=== PATIENT | male | born 1975 ===

== ENCOUNTER 2023-01-21 00:48 | Emergency (ER) | payer OTHER ==
[2023-01-21] MEDS ORDERED: LIDOCAINE 1% MPF 30 ML VIAL ONE (01:12)
[2023-01-21] MEDS ORDERED: DOXYCYCLINE 100 MG CAP PO ONE (01:12)
[2023-01-21] MEDS ORDERED: TDAP (DIPHTH,PERTUSS(ACELL),TET VAC) 0.5 ML VIAL IMVAC ONE (01:12)
[2023-01-21] MEDS ORDERED: HYDROCODONE/APAP 7.5/325 MG TAB ONE (01:41)
--- NOTE | 2023-01-21 02:25 | EDPHYS ---
Physician Documentation [facility] Name: Aidan Lara Age: 47 yrs Sex: Male : 1975 Arrival Date: 01/21/2023 Time: 00:48 Bed 11 Private MD: Scott Alamo HPI: 01/21 01:01 This 47 yrs old Male presents to ER via Wheelchair with complaints of Laceration To snw Foot. 01:01 The patient has a laceration related to: fishing. The laceration(s) is(are) located on snw the instep of left foot. Onset: The symptoms/episode began/occurred suddenly, just prior to arrival. The patient has not experienced similar symptoms in the past. It is unknown whether or not the patient has recently seen a physician. Historical: - Allergies: 01:00 No Known Allergies; kl - Home Meds: 01:00 None [Active]; kl - PMHx: 01:00 None; kl - PSHx: 01:00 inguinal hernia repair; kl - Immunization history:: Adult Immunizations not up to date. - Social history:: Smoking status: Patient denies any tobacco usage or history of. ROS: 01:01 Constitutional: Negative for fever, chills, and weight loss, Eyes: Negative for injury, snw pain, redness, and discharge, ENT: Negative for injury, pain, and discharge, Neck: Negative for injury, pain, and swelling, Cardiovascular: Negative for chest pain, palpitations, and edema, Respiratory: Negative for shortness of breath, cough, wheezing, and pleuritic chest pain, Abdomen/GI: Negative for abdominal pain, nausea, vomiting, diarrhea, and constipation, Back: Negative for injury and pain, : Negative for injury, bleeding, discharge, and swelling, MS/Extremity: Negative for injury and deformity, Neuro: Negative for headache, weakness, numbness, tingling, and seizure, Psych: Negative for depression, anxiety, suicide ideation, homicidal ideation, and hallucinations. 01:01 Skin: Positive for laceration(s), of the instep of left foot. Exam: 01:00 Constitutional: This is a well developed, well nourished patient who is awake, alert, snw and in no acute distress. Head/Face: Normocephalic, atraumatic. Eyes: Pupils equal round and reactive to light, extra-ocular motions intact. Lids and lashes normal. Conjunctiva and sclera are non-icteric and not injected. Cornea within normal limits. Periorbital areas with no swelling, redness, or edema. ENT: Nares patent. No nasal discharge, no septal abnormalities noted. Tympanic membranes are normal and external auditory canals are clear. Oropharynx with no redness, swelling, or masses, exudates, or evidence of obstruction, uvula midline. Mucous membranes moist. Neck: Trachea midline, no thyromegaly or masses palpated, and no cervical lymphadenopathy. Supple, full range of motion without nuchal rigidity, or vertebral point tenderness. No Meningismus. Chest/axilla: Normal chest wall appearance and motion. Nontender with no deformity. No lesions are appreciated. Cardiovascular: Regular rate and rhythm with a normal S1 and S2. No gallops, murmurs, or rubs. Normal PMI, no JVD. No pulse deficits. Respiratory: Lungs have equal breath sounds bilaterally, clear to auscultation and percussion. No rales, rhonchi or wheezes noted. No increased work of breathing, no retractions or nasal flaring. Abdomen/GI: Soft, non-tender, with normal bowel sounds. No distension or tympany. No guarding or rebound. No evidence of tenderness throughout. Back: No spinal tenderness. No costovertebral tenderness. Full range of motion. MS/ Extremity: Pulses equal, no cyanosis. Neurovascular intact. Full, normal range of motion. Neuro: Awake and alert, GCS 15, oriented to person, place, time, and situation. Cranial nerves II-XII grossly intact. Motor strength 5/5 in all extremities. Sensory grossly intact. Cerebellar exam normal. Normal gait. Psych: Awake, alert, with orientation to person, place and time. Behavior, mood, and affect are within normal limits. 01:00 Skin: Appearance: normal except for affected area, injury, laceration(s), the wound is approximately 3 cm(s), with a depth of 2 cm(s), of the instep of left foot. Vital Signs: 00:58 BP 147 / 100; Pulse 108; Resp 16; Temp 98.5(O); Pulse Ox 100% on R/A; Weight 85.73 kg; kl Height 5 ft. 7 in. ; Pain 9/10; 02:50 BP 128 / 89; Pulse 84; Resp 16; Pulse Ox 99% on R/A; kl 00:58 Body Mass Index 29.60 (85.73 kg, 170.18 cm) kl 00:58 Pain Scale: Adult kl Laceration: 01:42 Wound Repair of 3cm ( 1.2in ) subcutaneous laceration to instep of left foot. Distal snw neuro/vascular/tendon intact. Anesthesia: Local anesthetic administered with 10 mls of 1% lidocaine. Wound prep: Extensive cleansing with hibiclenz by nurse, Copious irrigation. Patient tolerated well. 02:22 Wound Repair of 3cm ( 1.2in ) subcutaneous laceration to instep of left foot. snw Irregularly shaped.. Moderate contamination.. flushed with hibiclens and NS until maximal evacuation of fb, x-ray cleared. Distal neuro/vascular/tendon intact. Anesthesia: Local anesthetic administered with 5 mls of 1% lidocaine. Wound prep: Copious irrigation. Skin closed with 5 4-0 Prolene using simple sutures and sterile technique. Dressed with 4x4's, pressure dressing, non-adherent dressing. Patient tolerated well. MDM: 00:58 Patient medically screened. snw 02:26 Differential diagnosis: superficial laceration, tendon injury, vascular injury. Data snw reviewed: vital signs, nurses notes, radiologic studies, plain films. I considered the following discharge prescriptions or medication management in the emergency department Medications were administered in the Emergency Department. See MAR. Counseling: I had a detailed discussion with the patient and/or guardian regarding: the historical points, exam findings, and any diagnostic results supporting the discharge/admit diagnosis, radiology results, the need for outpatient follow up, for definitive care, to return to the emergency department if symptoms worsen or persist or if there are any questions or concerns that arise at home. Response to treatment: the patient's symptoms have markedly improved after treatment. Special discussion: I have referred the patient to see his PCP for further evaluation of high blood pressure. I discussed in detail with the patient the higher chance of wound infection based on his presenting history. Based on the history and exam findings, there is no indication for further emergent testing or inpatient evaluation. I discussed with the patient/guardian the need to see the primary care provider for further evaluation of the symptoms. 01/21 01:00 Order name: Foot Left 3 View XRAY snw 01/21 01:42 Order name: Foot Left 2 View XRAY; Complete Time: 17:10 as6 01/21 01:00 Order name: Dressing - Wound; Complete Time: 02:49 snw 01/21 01:00 Order name: Gloves, Sterile; Complete Time: 02:49 snw 01/21 01:00 Order name: Setup Suture Tray; Complete Time: 02:49 snw 01/21 02:22 Order name: Wound dressing; Complete Time: 02:26 snw 01/21 02:22 Order name: Post-op Orthopedic Shoe; Complete Time: 02:26 snw Administered Medications: 01:08 Drug: Boostrix Tdap IM 0.5 ml Route: IM; Site: right deltoid; kl 02:50 Follow up: Response: No adverse reaction kl 01:08 Drug: Doxycycline PO 100 mg Route: PO; kl 02:50 Follow up: Response: No adverse reaction kl 01:46 Drug: Hydrocodone-Acetaminophen PO (7.5 mg-325 mg) 1 tabs Route: PO; kl 02:49 Follow up: Response: No adverse reaction; Marked relief of symptoms kl 01:47 Drug: Hibiclens Topical Liquid 4 % 1 application Route: Topical; Site: affected area; kl 02:49 Follow up: Response: No adverse reaction kl 02:26 Drug: Lidocaine Infiltration (1 %) 1 vials Volume: 20 ml; Route: Infiltration; kl 02:50 Follow up: Response: No adverse reaction kl Disposition Summary: 01/21/23 02:24 Discharge Ordered Location: Home snw Condition: Stable snw Diagnosis - Foot Laceration/ Open wound of foot snw Followup: snw - With: Emergency Department - When: As needed - Reason: Worsening of condition Followup: snw - With: Private Physician - When: 10 - 14 days - Reason: Recheck today's complaints, Continuance of care, Staple/Suture removal, Re-evaluation by your physician Discharge Instructions: - Discharge Summary Sheet snw - Laceration Care, Adult snw - How to Use a Cast Shoe snw Forms: - Work release form snw - Medication Reconciliation Form snw - Thank You Letter snw - Antibiotic Education snw - Prescription Opioid Use snw - [email or web address] snw Prescriptions: - Doxycycline Hyclate 100 mg Oral Tablet - take 1 tablet by ORAL route every 12 hours; 20 tablet; Refills: 0, Product snw Selection Permitted - Tramadol 50 mg Oral Tablet - take 1 tablet by ORAL route every 8 hours as needed; 12 tablet; Refills: 0, snw Product Selection Permitted Signatures: Dispatcher [employer] Josiane Segundo RN RN kl Waters, Shelly, GILLES-C GILLES-Juve
--- NOTE | 2023-01-21 02:25 | ER ---
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 Coronavirus screen: Vaccine status: Patient reports receiving the 2nd dose of the covid vaccine. Ebola Screen: Patient negative for fever greater than or equal to 101.5 degrees Fahrenheit, and additional compatible Ebola Virus Disease symptoms. Complicating Factors: There are no complicating factors for this patient. Initial Sepsis Screen: Does the patient meet any 2 criteria? No. Patient's initial sepsis screen is negative. Does the patient have a suspected source of infection? No. Patient's initial sepsis screen is negative. Risk Assessment: Do you want to hurt yourself or someone else? Patient reports no desire to harm self or others. 00:58 Method Of Arrival: Wheelchair kl 00:58 Acuity: DAVONTE 4 kl Triage Assessment: 01:01 General: Appears uncomfortable, Behavior is calm, cooperative. Pain: Complains of pain kl in left foot and instep of left foot Pain currently is 9 out of 10 on a pain scale. Injury Description: Laceration sustained to instep of left foot is jagged, 2.6 to 7.5 cm long, not bleeding. Historical: - Allergies: 01:00 No Known Allergies; kl - Home Meds: 01:00 None [Active]; kl - PMHx: 01:00 None; kl - PSHx: 01:00 inguinal hernia repair; kl - Immunization history:: Adult Immunizations not up to date. - Social history:: Smoking status: Patient denies any tobacco usage or history of. Screenin:50 [facility] ED Fall Risk Assessment (Adult) History of falling in the last 3 months, kl including since admission No falls in past 3 months (0 pts) Confusion or Disorientation No (0 pts) Intoxicated or Sedated No (0 pts) Impaired Gait Yes (1 pt) Mobility Assist Device Used Altered Elimination No (0 pt) Score/Fall Risk Level 0 - 2 = Low Risk Oriented to surroundings, Maintained a safe environment. Abuse screen: Denies threats or abuse. Nutritional screening: No deficits noted. Tuberculosis screening: No symptoms or risk factors identified. Assessment: 02:00 Reassessment: Patient appears in no apparent distress at this time. Patient states kl feeling better. Patient states symptoms have improved. Vital Signs: 00:58 BP 147 / 100; Pulse 108; Resp 16; Temp 98.5(O); Pulse Ox 100% on R/A; Weight 85.73 kg; kl Height 5 ft. 7 in. ; Pain 9/10; 02:50 BP 128 / 89; Pulse 84; Resp 16; Pulse Ox 99% on R/A; kl 00:58 Body Mass Index 29.60 (85.73 kg, 170.18 cm) kl 00:58 Pain Scale: Adult kl ED Course: 00:49 Patient arrived in ED. ag3 00:54 Raina Cordoav FNP-C is PHCP. snw 00:54 Scott Harper MD is Attending Physician. snw 01:00 Triage completed. kl 01:30 Foot Left 3 View XRAY In Process Unspecified. EDMS 02:18 Foot Left 2 View XRAY In Process Unspecified. EDMS 02:51 Patient has correct armband on for positive identification. Bed in low position. Call kl light in reach. 02:51 Assist provider with laceration repair on instep of left foot using sutures. Set up kl tray. Performed by Raina SHARIF Dressed with 4X4s, Kerlix, Neosporin, Patient tolerated well. Patient did not have IV access during this emergency room visit. Administered Medications: 01:08 Drug: Boostrix Tdap IM 0.5 ml Route: IM; Site: right deltoid; kl 02:50 Follow up: Response: No adverse reaction kl 01:08 Drug: Doxycycline PO 100 mg Route: PO; kl 02:50 Follow up: Response: No adverse reaction kl 01:46 Drug: Hydrocodone-Acetaminophen PO (7.5 mg-325 mg) 1 tabs Route: PO; kl 02:49 Follow up: Response: No adverse reaction; Marked relief of symptoms kl 01:47 Drug: Hibiclens Topical Liquid 4 % 1 application Route: Topical; Site: affected area; kl 02:49 Follow up: Response: No adverse reaction kl 02:26 Drug: Lidocaine Infiltration (1 %) 1 vials Volume: 20 ml; Route: Infiltration; 02:50 Follow up: Response: No adverse reaction Outcome: 02:24 Discharge ordered by . kamar 02:51 Discharged to home ambulatory, with family. kl 02:51 Condition: improved 02:51 Discharge instructions given to patient, Instructed on discharge instructions, follow up and referral plans. Demonstrated understanding of instructions, follow-up care, medications. 02:52 Patient left the ED. Signatures: Dispatcher [employer] EDJosiane Leblanc RN RN Raina Hughes, FURNACE FIRER-C FURNACE FIRER-Csnw Nisha Shell3
[2023-01-21 02:58] VITALS: TEMP 98.5
[2023-01-21 03:00] VITALS: BP 128/89; O2SAT 99
--- NOTE | 2023-01-21 09:09 | RAD REPORT ---
EXAM DESCRIPTION: RAD - Foot Left 2 View - 01/21/2023 2:16 am CLINICAL HISTORY: Left Foot pain foreign body FINDINGS: The examination was submitted to [employer] but did not get dictated. It is being submitted fo [facility] for interpretation now. The previously described 3 millimeter linear foreign body medial left midfoot is not visualized on cu rrent exam . Soft tissue laceration
--- NOTE | 2023-01-21 20:00 | RAD REPORT ---
EXAM DESCRIPTION: RAD - Foot Left 3 View - 01/21/2023 1:28 am CLINICAL HISTORY: Fb COMPARISON: None. TECHNIQUE: XR FOOT 3 OR MORE VIEWS 01/21/2023 1:00 AM CDT FINDINGS: There is no fracture. Joint spaces are preserved. There is a laceration within the media l mid foot. There is a linear radiopaque foreign body within the associated soft tissues measuring 3 mm. IMPRESSION: Medial left midfoot laceration with an associated 3 mm linear foreign body. No acute fra cture. Electronically signed by: Js Robert MD 01/21/2023 1:54 AM CDT Due to temporary technical issues with the PACS/Fluency reporting system, reports are being signed by the in house radiologists without review as a courtesy to insure prompt reporting. The interpreting radiologist is fully responsible for the content of the report.
== END 2023-01-21 02:52 | disposition home or self-care (01) ==
LOC: ER 00:48
PROC: 0HQNXZZ Repair Left Foot Skin, External Approach (ICD-10-PCS; principal; 2023-01-21)
DX: S91.312A Laceration without foreign body, left foot, initial encounter (principal)
CPT/HCPCS: 73630; 73620; 96372; 99284; 12002; J2001